=== PATIENT | male | born 1985 | race Caucasian/White ===

== ENCOUNTER 2022-09-29 14:19 | Emergency (ER) | payer BC ==
[2022-09-29 16:10] LABS: SARS-CoV-2 NAA Rapid Test Not Detected (NotDetected)
== END 2022-09-29 17:18 | disposition home or self-care (01) ==
LOC: CSHERS 14:19
DX: J06.9 Acute upper respiratory infection, unspecified (principal); Z20.822 Contact with and (suspected) exposure to COVID-19
CPT/HCPCS: 87081; 87430; 99283